=== PATIENT | female | born 1935 | race Asian ===

== ENCOUNTER 2020-02-19 14:02 | Outpatient (CLI) | payer MEDICARE, OTHER ==
[~2020-02-19] VITALS: Ht 152.4 cm; Wt 63.5 kg
[2020-02-19 14:00] VITALS: BP 144/60
--- NOTE | 2020-02-19 15:59 | Consultation ---
DATE OF CONSULTATION: 02/19/2020 CHIEF COMPLAINT: Abdominal pain, constipation, bloating, gas, abdominal distention. PAST MEDICAL HISTORY: 1. GERD. 2. Hypothyroidism. 3. Hypertension. 4. Overactive bladder. PAST SURGICAL HISTORY: None. MEDICATIONS: Please see medication reconciliation list. FAMILY HISTORY: Noncontributory. SOCIAL HISTORY: The patient denies any tobacco, alcohol, or drug use. ALLERGIES: No known allergies. REVIEW OF SYSTEMS: Positive for GERD, constipation, and bloating. PHYSICAL EXAMINATION: VITAL SIGNS: Temperature 98.8, blood pressure 144/66, pulse is 74, respirations 20. HEENT: Normocephalic and atraumatic. Sclerae anicteric. NECK: Supple. No evidence of obvious lymphadenopathy. CARDIOVASCULAR: Regular rate and rhythm. Plus S1 and S2. LUNGS: Decreased breath sounds bilaterally based on the supine exam. ABDOMEN: Soft, nontender. No rebound. No guarding. No peritoneal sign. EXTREMITIES: No cyanosis, no clubbing, no edema. ASSESSMENT: 1. Constipation. 2. SIBO. 3. GERD. PLAN: 1. The patient was advised not to take Protonix with Synthroid. Actually we will discontinue the Protonix, switch to Dexilant before lunchtime. 2. In terms of constipation, the patient to be on Linzess 290 one tablet by mouth daily. If that does not work, we will add Motegrity . 3. In terms of bloating, highly suspicious for SIBO. Start the patient on Xifaxan. The patient to come back in the office in two weeks. If still symptomatic, we will scan the patient and if that is nondiagnostic, we will consider GI procedures. Abner King M.D. DR: Michel JOB#: [id number] CC:
[2020-02-20] MEDS ORDERED: METOPROLOL SUCC25 MG ORAL (09:53)
[2020-02-20] MEDS ORDERED: MIRALAX17 G2 ORAL (09:53)
[2020-02-20] MEDS ORDERED: OXYBUTYNIN CHLOR5 M1 ORAL (09:53)
[2020-02-20] MEDS ORDERED: VITAMIN D325 MC1 PO (09:53)
[2020-02-20] MEDS ORDERED: AMLODIPINE BESYL5 MG ORAL (09:53)
[2020-02-20] MEDS ORDERED: VITAMIN C500 M1 ORAL (09:53)
[2020-02-20] MEDS ORDERED: DOCUSATE SODIU100 MG ORAL (09:53)
[2020-02-20] MEDS ORDERED: ZINC30 MG ORAL (09:53)
[2020-02-20] MEDS ORDERED: LINZESS145 MCG PO (09:53)
[2020-02-20] MEDS ORDERED: LEVOTHYROXINE75 MCG ORAL (09:53)
[2020-02-20] MEDS ORDERED: PANTOPRAZOLE SO40 MG ORAL (09:53)
[2020-02-20] MEDS ORDERED: BENICAR5 MG ORAL (09:53)
[2020-02-20] MEDS ORDERED: ASPIRIN EC81 MG ORAL (09:53)
== END 2020-02-19 16:02 | disposition home or self-care (01) ==
LOC: PAN 14:02
DX: R10.9 Unspecified abdominal pain (principal); K59.00 Constipation, unspecified; R14.0 Abdominal distension (gaseous); K21.9 Gastro-esophageal reflux disease without esophagitis; E03.9 Hypothyroidism, unspecified; I10 Essential (primary) hypertension; K56.609 Unspecified intestinal obstruction, unspecified as to partial versus complete obstruction
CPT/HCPCS: G0463

== ENCOUNTER 2020-03-15 07:32 | Day surgery (SDC) | payer MEDICARE, OTHER ==
[2020-03-15] VITALS (9 sets, daily range): BP systolic 126–149; BP diastolic 60–73
[~2020-03-15] VITALS: Ht 154.9 cm; Wt 63.5 kg
[~2020-03-15 07:32] MED LIST: AMLODIPINE BESYL5 MG ORAL; ASPIRIN EC81 MG ORAL; BENICAR5 MG ORAL; DOCUSATE SODIU100 MG ORAL; LEVOTHYROXINE75 MCG ORAL; LINZESS145 MCG PO; METOPROLOL SUCC25 MG ORAL; MIRALAX17 G2 ORAL; OXYBUTYNIN CHLOR5 M1 ORAL; PANTOPRAZOLE SO40 MG ORAL; VITAMIN C500 M1 ORAL; VITAMIN D325 MC1 PO; ZINC30 MG ORAL
[2020-03-15] MEDS ORDERED: FUROSEMIDE20 M1 ORAL (08:58)
[2020-03-15] MEDS ORDERED: DEXILANT60 MG ORAL (08:59)
[2020-03-15] MEDS ORDERED: LR 1000ml ONE (09:00)
[2020-03-15] MEDS ORDERED: LR 1000ml 1,000 ML IVLG SCH (09:00)
[2020-03-15] MEDS ORDERED: Lidocaine 1% MPF 10mg/ml 5ml ONE (09:00)
--- NOTE | 2020-03-15 09:34 | Short Stay Surgery H&P ---
History of Present Illness History of Present Illness Chief Complaint see raquel VELASQUEZ Chasity Carlos is a 84 year old female who was admitted on for Gerd, Abdominal Pain Patient History Allergies: Coded Allergies: No Known Allergies (Unverified , 02/20/20) Medication History Scheduled Amlodipine Besylate* (Amlodipine Besylate*), Unknown Dose ORAL DAILY, (Reported) Ascorbic Acid* (Vitamin C*), 500 MG ORAL DAILY, (Reported) Aspirin Ec* (Aspirin Ec*), 81 MG ORAL DAILY, (Reported) Dexlansoprazole (Dexilant), 60 MG ORAL DAILY, (Reported) Docusate Sodium* (Docusate Sodium*), 100 MG ORAL TWICE A DAY, (Reported) Furosemide* (Lasix*), 20 MG ORAL DAILY, (Reported) Levothyroxine Sodium* (Levothyroxine Sodium*), Unknown Dose ORAL DAILY, ( Reported) Linaclotide (Linzess), Unknown Dose PO PRN, (Reported) Metoprolol Succinate* (Metoprolol Succinate*), Unknown Dose ORAL DAILY, ( Reported) Olmesartan Medoxomil (Benicar), Unknown Dose ORAL DAILY, (Reported) Miscellaneous Medications Cholecalciferol (Vitamin D3) (Vitamin D3), Unknown Dose PO, (Reported) Oxybutynin Chloride (Oxybutynin Chloride), 5 MG ORAL, (Reported) Zinc Gluconate (Zinc), Unknown Dose ORAL, (Reported) Discontinued Medications Pantoprazole* (Pantoprazole*), 40 MG ORAL DAILY, (Reported) Discontinued Reason: discontinued med Polyethylene Glycol 3350* (Miralax*), 17 GM ORAL DAILY, (Reported) Discontinued Reason: discontinued med Physical Exam Vital Signs Last Vital Signs Date Time Temp Pulse Resp B/P (MAP) Pulse Ox O2 Delivery O2 Flow Rate FiO2 03/15/20 08:54 Room Air 03/15/20 08:48 97.1 91 18 149/68 98 Plan Attestation Are the patient's medical conditions optimized for surgery? Abner King MD Mar 15, 2020 09:34
--- NOTE | 2020-03-15 09:34 | Pre-Procedure Note/Attestation ---
Pre-Procedure Note/Attestation Complete Prior to Procedure Planned Procedure: not applicable Procedure Narrative: esophagogastroduodenoscopy and colonoscopy Indications for Procedure Pre-Operative Diagnosis: gerd, screening colon Attestation I attest that I discussed the nature of the procedure; its benefits; risks and complications; and alternatives (and the risks and benefits of such alternatives ), prior to the procedure, with the patient (or the patient's legal compliance representative). I attest that, if there was a reasonable possibility of needing a blood transfusion, the patient (or the patient's legal compliance representative) was given the [facility] standardized written summary, pursuant to the Kevin Kiana Blood Safety Act ([place] Health and Safety Code # 1645, as amended). I attest that I re-evaluated the patient just prior to the surgery and that there has been no change in the patient's H&P, except as documented below: Abner King MD Mar 15, 2020 09:34
--- NOTE | 2020-03-15 09:42 | Endoscopy Procedure Note ---
Endoscopy Procedure Note General Indication for Procedure: BD PAIN, gerd Procedures Performed: EGD, colonoscopy Operative Findings/Diagnosis: GASTRITIS, HEMORRHOIDS Specimen: yes Pt Tolerated Procedure Well: Yes Estimated Blood Loss: none Anesthesia Anesthesiologist: KEIRA Anesthesia: MAC Inserted Devices Implant(s) used?: No Quality Quality of Bowel Preparation: Good Did scope reach the cecum?: Yes Was there any complications?: No GI Core Measures 50 yrs or older w/o bx or poly: No 10yrs. F/U recommended: Yes If not recommended, why?: Above average risk 18 years or older w/prev. colo: No Abner King MD Mar 15, 2020 09:42
--- NOTE | 2020-03-15 10:03 | Immediate Post-Op Evaluation ---
Immediate Post-Op Evalulation Immediate Post-Op Evalulation Procedure: EGD/Colonoscopy. Date of Evaluation: Mar 15, 2020 Time of Evaluation: 10:02 IV Fluids: 700 Blood Pressure Systolic: 128 Blood Pressure Diastolic: 70 Pulse Rate: 77 Respiratory Rate: 14 O2 Sat by Pulse Oximetry: 99 Temperature (Fahrenheit): 98.2 Nausea: No Vomiting: No Complications none Patient Status: awake, reacts, patent Hydration Status: adequate Drug: none Frieda Hubbard CRNA Mar 15, 2020 10:03
--- NOTE | 2020-03-15 10:04 | Anethesia Preoperative Eval ---
Anesthesia Pre-op PMH/ROS General Date of Evaluation: Mar 15, 2020 Time of Evaluation: 09:00 Anesthesiologist: krista ASA Score: ASA 2 Mallampati Score Class I : Soft palate, uvula, fauces, pillars visible Class II: Soft palate, uvula, fauces visible Class III: Soft palate, base of uvula visible Class IV: Only hard plate visible Mallampati Classification: Class II Surgeon: wero Diagnosis: screening Surgical Procedure: EGD/Colonoscopy Anesthesia History: none Family History: no anesthesia problems Allergies: Coded Allergies: No Known Allergies (Unverified , 02/20/20) Medications: see eMAR Patient NPO?: Yes NPO Date: Mar 15, 2020 NPO Time: 00:01 Past Medical History Cardiovascular: Reports: HTN, CAD Pulmonary: Denies: asthma, COPD, CONOR, other Gastrointestinal/Genitourinary: Reports: GERD; Denies: CRI, ESRD, other Neurologic/Psychiatric: Denies: dementia, CVA, depression/anxiety, TIA, other Endocrine: Denies: DM, hypothyroidism, steroids, other HEENT: Denies: cataract (L), cataract (R), glaucoma, GALENA (L), GALENA (R), other PSxH Narrative: egd/colon Anesthesia Pre-op Phys. Exam Physician Exam Last Vital Signs Date Time Temp Pulse Resp B/P (MAP) Pulse Ox O2 Delivery O2 Flow Rate FiO2 03/15/20 08:54 Room Air 03/15/20 08:48 97.1 91 18 149/68 98 Constitutional: NAD Neurologic: CN 2-12 intact Cardiovascular: RRR Respiratory: CTA Gastrointestinal: S/NT/ND Airway Exam Mallampati Classification 2 Mallampati Score: Class II MO: full ROM: full Dentures: upper, lower Anesthesia Pre-op A/P Studies Pre-op Studies: EKG Risk Assessment & Plan Assessment: covid neg Plan: mac Status Change Before Surgery: No Pre-Antibiotics Drug: none Frieda Hubbard CRNA Mar 15, 2020 10:04
--- NOTE | 2020-03-15 11:17 | 48 Hour Post Anesthesia Eval ---
Post Anesthesia Evaluation Procedure: EGD/Colonoscopy. Date of Evaluation: Mar 15, 2020 Time of Evaluation: 11:16 Blood Pressure Systolic: 133 0: 66 Pulse Rate: 70 Respiratory Rate: 14 O2 Sat by Pulse Oximetry: 98 Airway: patent Nausea: No Vomiting: No Hydration Status: adequate Cardiopulmonary Status: stable Mental Status/LOC: patient returned to baseline Follow-up Care/Observations: na Post-Anesthesia Complications: none Follow-up care needed: N/A Frieda Hubbard CRNA Mar 15, 2020 11:17
--- NOTE | 2020-03-15 11:30 | Procedure Note ---
DATE OF PROCEDURE: 03/15/2020 SURGEON: Abner King MD. PROCEDURE: Upper endoscopy biopsy and colonoscopy. ANESTHESIA: Per ELECTRONIC COMPONENT PROCESSOR, Frieda Tarrillleonardo. INSTRUMENT: Olympus adult flexible upper endoscope and colonoscope. INDICATION: Abdominal pain, weight loss, constipation. REASON FOR PROCEDURE: The procedure, risks, benefits, and possible consequences, including hemorrhage, aspiration, perforation and infection, and alternative treatments, were explained to the patient/legal guardian by Dr. Abner King and the patient/legal guardian understood and accepted these risks. DESCRIPTION OF PROCEDURE: After informed consent was obtained and the patient was adequately sedated, Olympus upper endoscope was advanced from mouth into the second portion of the duodenum and retroflexion was performed in the stomach. There was evidence of diffuse gastritis. Random biopsy from antrum was obtained to rule out H. pylori infection. Otherwise, the rest of the examination grossly within normal limits. The patient has a small inlet patch in the upper esophagus. At this time, the upper endoscope was retrieved and the patient was turned over for colonoscopy. First, rectal exam was performed, which was positive for internal hemorrhoids. Then, the scope was advanced from rectum into the cecum documented by appendix orifice, ileocecal valve, and right upper quadrant palpation. Quality of prep was good. The patient had normal colonoscopy examination except for hemorrhoids, which was seen on the retroflexion of rectum. SUMMARY OF FINDINGS: 1. Gastritis, status post biopsy. 2. Small inlet patch. 3. Internal hemorrhoids. RECOMMENDATIONS: Follow up biopsy results and treat accordingly. Abner King M.D. DR: JENNY JOB#: [id number] CC:
== END 2020-03-15 11:00 | disposition home or self-care (01) ==
LOC: GAS 07:32
DX: R10.9 Unspecified abdominal pain (principal); R63.4 Abnormal weight loss; K59.00 Constipation, unspecified; K64.8 Other hemorrhoids; K29.70 Gastritis, unspecified, without bleeding; Z79.82 Long term (current) use of aspirin; I11.9 Hypertensive heart disease without heart failure; I25.10 Atherosclerotic heart disease of native coronary artery without angina pectoris; K21.9 Gastro-esophageal reflux disease without esophagitis
CPT/HCPCS: 43239; 45378; 93005; 94003; J2704; J7120; U0002; 94150